=== PATIENT | male | born 1975 | race Caucasian/White ===

== ENCOUNTER → 2017-01-27 | Outpatient (CLI) | payer MEDICARE, OTHER ==
[2017-01-27 10:59] LABS: Prostate Specific Antigen 1.68 ng/mL (0.00-4.00)
== END | disposition home or self-care (01) ==
LOC: LABWHC1 08:34
PROVIDERS: ATTEND Family Medicine
DX: E23.0 Hypopituitarism (principal); R53.83 Other fatigue
CPT/HCPCS: 36415; 82672; 84153; 84270; 84402; 84403; 84439; 84443

== ENCOUNTER → 2019-02-16 | Outpatient (CLI) | payer MEDICARE, OTHER ==
[~2019-02-16] MED LIST: REGADENOSON 0.4 MG/5 ML SYRINGE IV ONE
--- NOTE | 2019-02-17 10:21 | NM ---
EXAMINATION TYPE: NM stress lexiscan cardiolite DATE OF EXAM: 02/17/2019 COMPARISON: NONE HISTORY: Chest pain TECHNIQUE: After the intravenous administration of 10.8 mCi Tc 99m Sestamibi - Cardiolite resting SP ECT images acquired 45 minutes post injection. The patient received 0.4mg Lexiscan, 26.6 mCi Tc 99m Sestamibi - Stress images obtained [address] injection FINDINGS: Review of stress and rest SPECT images demonstrates no distinct perfusion abnormality. Gated analysi s shows normal wall motion with an estimated left ventricular ejection fraction of 61 %. IMPRESSION: No scintigraphic evidence for reversible ischemia.
--- NOTE | 2019-02-18 14:58 | EST ---
Stress Test Results/Findings: Exam Performed: NM stress lexiscan cardiolite Exam Date: 02/17/19 Reason for Exam: CHEST PAIN Height: 5 ft 8 in Weight: 149.685 kg Protocol: LEXISCAN CARDIOLITE Stage: N/A Duration of Exercise: 4:00 Resting Heart Rate: 72 Resting Blood Pressure: 133/73 Maximum Achieved Heart Rate: 89 Maximum Achieved Blood Pressure: 181/81 85% PMHR: 149 100% PMHR: 175 METS: N/A Technologist Comment: Stress Test Results/Findings: Heart rate 52 beats a minute blood pressure 133/73 mmHg Twelve-lead ECG shows sinus rhythm and normal cardiac intervals normal ST segments Patient received Lexiscan infusion per protocol no sibilant she started her blood pressure Nuclear portion of the stress test will be reported separately Additional CC's: Chadnan SHEA
== END | disposition home or self-care (01) ==
LOC: RADNMMAIN 08:02
PROVIDERS: ATTEND Family Medicine
DX: R07.9 Chest pain, unspecified (principal)
CPT/HCPCS: 78452; A9500; J2785; 93017

== ENCOUNTER → 2019-03-08 | Outpatient (CLI) | payer MEDICARE, OTHER ==
--- NOTE | 2019-03-09 08:30 | ECHOF ---
Referral Reason:R07.9 chest pain MEASUREMENTS -------- HEIGHT: 172.7 cm WEIGHT: 144.2 kg BP: RVIDd: 3.2 cm (< 3.3) IVSd: 1.3 cm (0.6 - 1.1) LVIDd: 4.9 cm (3.9 - 5.3) LVPWd: 1.5 cm (0.6 - 1.1) IVSs: 1.7 cm LVIDs: 2.8 cm LVPWs: 1.8 cm LAESV Index (A-L): 29.12 ml/m Ao Diam: 2.9 cm (2.0 - 3.7) AV Cusp: 1.9 cm (1.5 - 2.6) LA Diam: 4.2 cm (2.7 - 3.8) EPSS: 0.6 cm MV E Benjamin: 1.32 m/s MV DecT: 232 ms MV A Benjamin: 0.91 m/s MV E/A Ratio: 1.45 AV maxP.02 mmHg AV meanP.44 mmHg RAP: 5.00 mmHg RVSP: 28.05 mmHg MV EF SLOPE: 97.67 mm/s (70 - 150) MV EXCURSION: 1.61 cm (> 18.000) FINDINGS -------- Sinus rhythm. This was a technically adequate study. The left ventricular size is normal. There is moderate concentric left ventricular hypertrophy. O verall left ventricular systolic function is normal with, an EF between 60 - 65 %. The diastolic fi lling pattern is normal for the age of the patient. The right ventricle is normal in size. Left atrium is mildly dilated by volume. The right atrial size is normal. Interatrial and interventricular septum intact. The aortic valve is trileaflet and appears structurally normal. There is no evidence of aortic regu rgitation. There is no evidence of aortic stenosis. There is trace mitral regurgitation. Mild tricuspid regurgitation present. There is no evidence of pulmonary hypertension. The right v entricular systolic pressure, as measured by Doppler, is 28.05mmHg. Trace/mild (physiologic) pulmonic regurgitation. There is no pericardial effusion. CONCLUSIONS -------- 1. Sinus rhythm. 2. This was a technically adequate study. 3. The left ventricular size is normal. 4. There is moderate concentric left ventricular hypertrophy. 5. Overall left ventricular systolic function is normal with, an EF between 60 - 65 %. 6. The diastolic filling pattern is normal for the age of the patient. 7. The right ventricle is normal in size. 8. Left atrium is mildly dilated by volume. 9. The right atrial size is normal. 10. Interatrial and interventricular septum intact. 11. The aortic valve is trileaflet and appears structurally normal. 12. There is no evidence of aortic regurgitation. 13. There is no evidence of aortic stenosis. 14. There is trace mitral regurgitation. 15. Mild tricuspid regurgitation present. 16. There is no evidence of pulmonary hypertension. 17. The right ventricular systolic pressure, as measured by Doppler, is 28.05mmHg. 18. Trace/mild (physiologic) pulmonic regurgitation. 19. There is no pericardial effusion. EMERGENCY ROOM PHYSICIAN ASSISTANT: Ana Crandall RDCS
== END | disposition home or self-care (01) ==
LOC: RADECHMAIN 14:33
PROVIDERS: ATTEND Family Medicine
DX: I07.1 Rheumatic tricuspid insufficiency (principal)
CPT/HCPCS: 93306

== ENCOUNTER 2019-04-28 07:34 | Day surgery (SDC) | payer MEDICARE, OTHER ==
[2019-04-26 11:37] VITALS: BMI 50.1
[~2019-04-28 07:34] MED LIST changes: +ALPRAZolam 0.25 MG TAB PO PRN; +ALPRAZolam 0.5 MG TAB PO PRN; +ASPIRIN 325 MG TAB PO ONE; +ATORVASTATIN 80 MG TAB PO ONE; +NITROGLYCERIN SL TABS 0.4 MG TAB SUBLINGUAL PRN; -REGADENOSON 0.4 MG/5 ML SYRINGE IV ONE; +SODIUM CHLORIDE 0.9% 1,000 ML in EMPTY BAG 1 BAG IV ONE
[2019-04-28 08:15] VITALS: TEMP 98.1
[2019-04-28] MEDS ORDERED: fentaNYL (PF) 50 MCG/ML 2 ML AMP ONE (08:52)
[2019-04-28] MEDS ORDERED: LIDOCAINE 1% INJ 10MG/ML (20 ML MDV) ONE ×2 (08:52→09:20)
[2019-04-28] MEDS ORDERED: HEPARIN SODIUM 1,000 UN/ML (10ML VL) ONE (08:52)
[2019-04-28] MEDS ORDERED: VERAPAMIL 2.5 MG/ML 2 ML AMP ONE (08:52)
[2019-04-28] MEDS ORDERED: fentaNYL (PF) 50 MCG/ML 2 ML AMP IV ONE (09:02)
[2019-04-28] MEDS: MIDAZOLAM 2 MG/2 ML VIAL IVP ONE ×2 (09:02→09:12)
[2019-04-28] MEDS ORDERED: IV FLUID CONTINUATION 950 ML IV ONE (09:04)
[2019-04-28] MEDS: LIDOCAINE 1% INJ 10MG/ML (20 ML MDV) SQ ONE ×2 (09:09→09:22)
[2019-04-28] MEDS ORDERED: HYDROmorphone 1 MG/ML 1 ML SYRINGE ONE (09:26)
[2019-04-28] MEDS ORDERED: HYDROmorphone 1 MG/ML 1 ML SYRINGE IVP ONE (09:29)
[2019-04-28] MEDS ORDERED: ATROPINE SULFATE 0.1 MG/ML 10ML SYRINGE IVP ONE (09:30)
[2019-04-28] MEDS ORDERED: IOPAMIDOL-370 50ML BTL INJ ONE (09:42)
[2019-04-28] MEDS ORDERED: IOPAMIDOL-370 125ML BTL INJ ONE (09:52)
[2019-04-28] MEDS ORDERED: RX INFO: IV CONTRAST WAS GIVEN 1 EACH MISC MISCELLANE PRN (10:05)
--- NOTE | 2019-04-28 10:12 | P.CARDCATH ---
Date of Procedure: 04/28/19 Preoperative Diagnosis: Recurrent chest pains and nonsustained V. tach. Diabetes and family history of ischemic heart disease Postoperative Diagnosis: Normal left anterior descending coronary artery and right coronary artery. Left circumflex system could not be found on the study Procedure(s) Performed: Left heart catheterization and left ventriculography Description of Procedure: HISTORY: This is a 44-year-old gentleman with history of diabetes and family history of ischemic or disease was been having recurrent chest pains. His a stress test was reported as negative. Patient however developed nonsustained V. tach on the event monitor. Patient is advised to have a cardiac catheterization for definitive diagnosis CONSENT:I have discussed the risks, benefits and alternative therapies for the above-mentioned procedure and for both sedation/analgesia as well as necessary blood product administration, if indicated, as they pertain to this patient. The patient has indicated understanding and acceptance of the risks and procedures discussed. PROCEDURE: Patient was brought to the lab in a fasting state. Patient was given some IV sedation. Attempts were made to do catheterization from the right radial approach. Right radial artery was entered, but we could not be advanced. The procedure. Subsequent performed. The groin. The right groin is infiltrated with lidocaine and right femoral artery was ente red using Seldinger technique. A 6-[place] catheter was left in place and selective coronary arteriography and left ventriculography was performed. Patient tolerated the procedure well. Femoral angiogram was performed and Angio-Seal was applied for hemostasis. No immediate complications were noted and patient was transferred to [facility] in a stable condition Conscious Sedation: Versed 2mg Fentanyl 50 g and Dilaudid 0.5 mg Duration 40minutes HEMODYNAMICS: The aortic pressure was fluctuating from 110-150/90. The left ventricle end-diastolic pressure is about 15. There was no gradient across the aortic valve SELECTIVE CORONARY ARTERIOGRAPHY: LEFT MAIN: Nonexistent with separate origins of the left anterior descending THE LEFT ANTERIOR DESCENDING CORONARY ARTERY: This is a moderate caliber vessel giving rise to good-sized diagonal branch. The LAD and branches are free of occlusive disease THE LEFT CIRCUMFLEX AND IS CORONARY ARTERY: Cannot be studied and located on the study THE RIGHT CORONARY ARTERY: This is a good caliber vessel and nondominant. Free of occlusive disease LEFT VENTRICULOGRAPHY:. This revealed normal-sized cardiac silhouette with preserved LV function. There is uncoiling of the aorta and rotated cardiac silhouette FINAL IMPRESSION:. Normal left anterior descending and right coronary artery. Normal LV function. Circumflex coronary artery could not be located. PLAN: Continue medical therapy. Consider CT angiogram PROGNOSIS: Fair
[2019-04-28] MEDS ORDERED: SODIUM CHLORIDE 0.9% 1,000 ML IV SCH (10:15)
[2019-04-28 10:22] VITALS: RESP 16
[2019-04-28 15:37] VITALS: BP 118/62; PULSE 62
== END 2019-04-28 16:05 | disposition home or self-care (01) ==
LOC: CATHCVL 07:34
PROVIDERS: ATTEND Internal Medicine Cardiovascular Disease
DX: R07.9 Chest pain, unspecified (principal); I47.2 Ventricular tachycardia; E11.9 Type 2 diabetes mellitus without complications; E66.9 Obesity, unspecified; F17.210 Nicotine dependence, cigarettes, uncomplicated; Z68.43 Body mass index [BMI] 50.0-59.9, adult; Z79.51 Long term (current) use of inhaled steroids; Z82.49 Family history of ischemic heart disease and other diseases of the circulatory system
CPT/HCPCS: 93458; C1760; C1894 ×2; C1769 ×3; J2250; J2001; J0461; J3010; J1170; Q9967 ×2

== ENCOUNTER → 2022-01-28 | Outpatient (CLI) | payer MEDICARE, OTHER ==
--- NOTE | 2022-01-28 10:39 | XR ---
EXAMINATION TYPE: XR chest 2V DATE OF EXAM: 01/28/2022 10:28 AM COMPARISON: Chest radiographs from 03/13/2013 TECHNIQUE: XR chest 2V Frontal and lateral views of the chest. CLINICAL INDICATION:Male, 46 years old with history of J44.9 COPD; FINDINGS: Lungs/Pleura: There is no evidence of pleural effusion, focal consolidation, or pneumothorax. Pulmonary vascularity: Unremarkable. Heart/mediastinum: Cardiomediastinal silhouette is unremarkable. Musculoskeletal: No acute osseous pathology. IMPRESSION: No acute cardiopulmonary disease/process.
--- NOTE | 2022-01-28 13:23 | CA ---
Transthoracic Echo Report Name: Jonny Geronimo Age: 46 Gender: M : 1975 Exam Date: 01/28/2022 11:03 Exam Location: [facility] Ht (in): 68 Wt (lb): 372 Ordering Physician: Chandan Cortes MD Attending/Referring Phys: [id number], [employer] Ammy Lorenzo, [facility] Procedure CPT: Indications: R00.2 palpitations Cardiac Hx: Technical Quality: Fair Contrast 1: Total Dose (mL): Contrast 2: Total Dose (mL): MEASUREMENTS (Male / Female) Normal Values 2D ECHO LV Diastolic Diameter PLAX 4.9 cm 4.2 - 5.9 / 3.9 - 5.3 cm LV Systolic Diameter PLAX 3.4 cm IVS Diastolic Thickness 1.0 cm 0.6 - 1.0 / 0.6 - 0.9 cm LVPW Diastolic Thickness 1.2 cm 0.6 - 1.0 / 0.6 - 0.9 cm LV Relative Wall Thickness 0.5 RV Internal Dim ED PLAX 3.2 cm LA Volume 33.7 cm??? 18 - 58 / 22 - 52 cm??? M-MODE Aortic Root Diameter MM 3.1 cm LA Systolic Diameter MM 3.5 cm LA Ao Ratio MM 1.1 AV Cusp Separation MM 2.1 cm DOPPLER AV Peak Velocity 173.1 cm/s AV Peak Gradient 12.0 mmHg LVOT Peak Velocity 122.5 cm/s LVOT Peak Gradient 6.0 mmHg MV Area PHT 3.7 cm??? Mitral E Point Velocity 110.9 cm/s Mitral A Point Velocity 83.7 cm/s Mitral E to A Ratio 1.3 MV Deceleration Time 204.8 ms MV E' Velocity 11.1 cm/s Mitral E to MV E' Ratio 10.0 TR Peak Velocity 199.1 cm/s TR Peak Gradient 15.8 mmHg Right Ventricular Systolic Press 20.8 mmHg FINDINGS Left Ventricle Normal Left ventricular size, mildly increased left ventricular wall thickness. systolic function with no obvious regional wall motion abnormalities. Normal Left ventricular diastolic filling pattern. Left ventricular ejection fraction is estimated at 55-60 %. Right Ventricle Normal right ventricular size and function. Right ventricular systolic pressure within normal limits. Right Atrium Right atrium not well visualized. Left Atrium Normal left atrial size. No evidence for an atrial septal defect. Mitral Valve Structurally normal mitral valve. No mitral stenosis, regurgitation or prolapse. Aortic Valve No aortic valve stenosis or regurgitation. Tricuspid Valve Mild tricuspid regurgitation. Pulmonic Valve Trace pulmonic regurgitation. Pericardium No pericardial effusion. Aorta Normal size aortic root and proximal ascending aorta. CONCLUSIONS Normal left ventricular ejection fraction 55-60% Mild increased left ventricular wall thickness Normal RVSP No mitral regurgitation Mild tricuspid regurgitation Previewed by: Dr. River Blackwell DO (Electronically Signed) Final Date: 28 January 2022 13:22
== END | disposition home or self-care (01) ==
LOC: RADECHMAIN 10:14
PROVIDERS: ATTEND Family Medicine
DX: J44.9 Chronic obstructive pulmonary disease, unspecified (principal); I10 Essential (primary) hypertension
CPT/HCPCS: 71046; 93270; 93306

== ENCOUNTER → 2024-11-25 | Outpatient (CLI) | payer MEDICARE, OTHER ==
[2024-11-25 10:39] LABS: Basophils % (A) 1.1 %; Eosinophils # (A) 0.18 X 10*3/uL (0.04-0.35); HCT 41.4 % (39.6-50.0); HGB 12.6 g/dL (13.0-17.0); Lymphocytes # (A) 2.21 X 10*3/uL (0.90-5.00); Lymphocytes % (A) 24.9 %; MCHC 30.4 g/dL (32.0-37.0); MCV 78.9 FL (80.0-97.0); Monocytes # (A) 0.66 X 10*3/uL (0.20-1.00); Monocytes % (A) 7.4 %; NRBC Per 100 WBC 0 X 10*3/uL (0.00-0.01); Neutrophils # (A) 5.69 X 10*3/uL (1.80-7.70); Neutrophils % (A) 64.3 %; Platelet Count 293 X 10*3/uL (140-440); RBC 5.25 X 10*6/uL (4.40-5.60); RDW 15.5 % (11.5-14.5); WBC 8.87 X 10*3/uL (4.50-10.00)
[2024-11-25 10:56] LABS: Microalbumin Creatinine Ratio <6 mg/g Cr (0-30)
[2024-11-25 11:14] LABS: ALT 14 U/L (10-49); AST 21 U/L (14-35); Albumin 4.1 g/dL (3.8-4.9); Albumin/Globulin Ratio 1.21 Ratio (1.60-3.17); Alkaline Phosphatase 99 U/L (41-126); BUN/Creat Ratio 20.62 Ratio (12.00-20.00); Blood Urea Nitrogen 16.5 mg/dL (9.0-27.0); Calcium 8.8 mg/dL (8.7-10.3); Chloride 103 mmol/L (96-109); Globulin 3.4 g/dL (1.6-3.3); Glucose 94 mg/dL (70-110); Potassium 4.8 mmol/L (3.5-5.5); Sodium 140 mmol/L (135-145); Total Bilirubin 0.8 mg/dL (0.3-1.2); Total Protein 7.5 g/dL (6.2-8.2)
== END | disposition home or self-care (01) ==
LOC: LABWHC1 07:10
PROVIDERS: ATTEND Nurse Practitioner Family
DX: E11.69 Type 2 diabetes mellitus with other specified complication (principal); E78.9 Disorder of lipoprotein metabolism, unspecified; E55.9 Vitamin D deficiency, unspecified; G47.01 Insomnia due to medical condition; R79.89 Other specified abnormal findings of blood chemistry
CPT/HCPCS: 36415; 80053; 80061; 82043; 82306; 82533; 82570; 83036; 83970; 84403; 85025